=== PATIENT | male | born 1955 | race Two or more races ===

== ENCOUNTER 2022-12-23 08:34 | Emergency (ER) | payer MEDICARE ==
[2022-12-23] MEDS ORDERED: Sodium Chloride 0.9% 10 ML Syringe FLUSH PRN (08:48)
[2022-12-23 09:04] LABS: BASOPHILS ABSOLUTE AUTO 0.02 K/uL (0.00-0.20); BASOPHILS PERCENT AUTO 0.2 % (0.0-2.0); EOSINOPHILS ABSOLUTE AUTO 0.27 K/uL (0.00-0.50); EOSINOPHILS PERCENT AUTO 2.3 % (0.0-5.0); HEMATOCRIT 34.9 % (39.0-49.0); HEMOGLOBIN 11.4 g/dL (13.1-16.8); LYMPHOCYTES ABSOLUTE AUTO 4.81 K/uL (0.50-3.50); LYMPHOCYTES PERCENT AUTO 40.2 % (10.0-50.0); MEAN CORPUSCULAR HEMOGLOBIN 29.7 pg (28.2-33.3); MEAN CORPUSCULAR HGB CONC 32.7 g/dL (31.7-36.0); MEAN CORPUSCULAR VOLUME 90.9 fL (84.0-98.0); MONOCYTES ABSOLUTE AUTO 0.63 K/uL (0.00-1.00); MONOCYTES PERCENT AUTO 5.3 % (2.0-14.0); NEUTROPHILS ABSOLUTE AUTO 6.25 K/uL (1.40-7.00); PLATELET COUNT,PLT 392 K/uL (150-350); RED BLOOD CELL COUNT 3.84 M/uL (4.33-5.41); RED CELL DISTRIBUTION WIDTH 14.9 % (11.2-14.1)
[2022-12-23 09:25] LABS: PROTHROMBIN TIME 10.3 SEC (9.0-11.1)
[2022-12-23 09:26] LABS: ALBUMIN 2.7 g/dL (3.4-5.0); BILIRUBIN TOTAL 0.2 mg/dL (0.2-1.0); CALCIUM 8.8 mg/dL (8.5-10.1); CARBON DIOXIDE,CO2 25.5 mmol/L (21.0-32.0); CREATININE 0.67 mg/dL (0.51-1.17); EST CRCL DRUG DOSING (CG) 66.72 mL/min; POTASSIUM,K 3.3 mmol/L (3.5-5.1); PROTEIN TOTAL,TP 7.6 g/dL (6.4-8.2)
[2022-12-23 09:30] LABS: ANION GAP 12.8 meq/L (7-15)
[2022-12-23] MEDS ORDERED: Potassium Chloride 20 MEQ Tab.ER PO ONE (10:33)
[2022-12-23 11:00] LABS: APPEARANCE,URINE TURBID; BILIRUBIN,URINE NEGATIVE (NEGATIVE); COLOR,URINE YELLOW; GLUCOSE,URINE NEGATIVE (NEGATIVE); KETONES,URINE NEGATIVE (NEGATIVE); LEUKOCYTE ESTERASE,URINE LARGE (NEGATIVE); NITRITE,URINE NEGATIVE (NEGATIVE); OCCULT BLOOD,URINE LARGE (NEGATIVE); PROTEIN,URINE 100 mg/dL (NEGATIVE); UROBILINOGEN,URINE 0.2 E.U./dL (0.2-1.0)
[2022-12-23 11:13] LABS: BACTERIA,URINE MANY /HPF (NONE TO FEW); WBC,URINE 20-30 /HPF
[2022-12-23] MEDS ORDERED: Sodium Chloride 0.9% 1,000 ML IV ONE (11:32)
[2022-12-23] MEDS ORDERED: Piperacillin/Tazobactam 3.375 GM in Sodium Chloride 0.9% 100 ML IV SCH (14:45)
== END 2022-12-23 16:15 ==
LOC: LL.ED 08:34
DX: K57.92 Diverticulitis of intestine, part unspecified, without perforation or abscess without bleeding (principal); L02.211 Cutaneous abscess of abdominal wall; E87.6 Hypokalemia; N32.1 Vesicointestinal fistula; F17.210 Nicotine dependence, cigarettes, uncomplicated
CPT/HCPCS: 36415; 80053; 81001; 83605; 85025; 85610; 87040; 87070; 87086; 87088; 87186; 87205; 96361; 96365; 99284; A9270; J2543; J3490; J7030